=== PATIENT | male | born 1990 | race Caucasian/White ===

== ENCOUNTER 2017-12-13 22:37 | Emergency (ER) | payer BC ==
[~2017-12-13] VITALS: Ht 182.9 cm; Wt 92.2 kg
[2017-12-13] MEDS ORDERED: TOBREX5 ML LEFT EYE (23:54)
[2017-12-14 00:15] VITALS: BP 133/77
== END 2017-12-14 00:16 | disposition home or self-care (01) ==
LOC: EME 22:37 → EXP 22:37
PROC: 08C9XZZ Extirpation of Matter from Left Cornea, External Approach (ICD-10-PCS; principal; 2017-12-13)
DX: T15.02XA Foreign body in cornea, left eye, initial encounter (principal); X58.XXXA Exposure to other specified factors, initial encounter; Y99.0 Civilian activity done for income or pay; Y92.513 Shop (commercial) as the place of occurrence of the external cause; F17.200 Nicotine dependence, unspecified, uncomplicated; Z88.0 Allergy status to penicillin
CPT/HCPCS: 99281; 99283